=== PATIENT | female | born 1980 | race Hispanic/Latino ===

== ENCOUNTER 2017-06-10 15:30 | Outpatient (CLI) | payer BC ==
--- NOTE | 2017-06-10 18:32 | ULT ---
ULTRASOUND OB COMPLETE: History: Size and dates. Comparison: None available for this . Technique: Real-time grayscale and color evaluation of the gravid uterus with a transabdominal approa ch. FINDINGS: The cervix is closed and measures approximately 7 cm. Placenta is anterior and fundal. Single viable intrauterine measuring on ultrasound 20 weeks 0 days. Estimated date of marco mary is 18. Estimated weight is 13 ounces. BPH 19 weeks 6 days 4.95 cm HC 19 weeks 5 days 17.14 cm AC 20 weeks 6 days 15.70 cm FL 20 weeks 4 days 3.36 cm LFD 19 weeks 0 days 6.05 cm The visualized spine, bladder, kidneys, diaphragm, and cord insertion are all normal. The remainder o f the anatomy is not well seen on this examination. The heart rate is documented at 162 beats/minute. IMPRESSION: Single viable intrauterine with average ultrasound age of 20 weeks 0 days. Estimated date o f delivery is 18. Estimated weight is 13 ounces. POS: [facility]
== END 2017-06-10 15:31 | disposition home or self-care (01) ==
LOC: ULT 15:30
PROVIDERS: ATTEND Family Medicine
DX: Z34.92 Encounter for supervision of normal pregnancy, unspecified, second trimester (principal); Z3A.20 20 weeks gestation of pregnancy
CPT/HCPCS: 76805

== ENCOUNTER 2017-10-25 05:10 | Inpatient (IN) | payer BC ==
[2017-10-25 05:55] VITALS: BMI 56.3
[2017-10-25] MEDS ORDERED: CEFAZOLIN/Water 2 GM/20 ML SYRINGE SLOW IVP SCH (06:01)
[2017-10-25] MEDS ORDERED: Ondansetron HCl/PF 4 MG/2 ML Vial IVP PRN ×5 (06:01→10:56)
[2017-10-25] MEDS ORDERED: Lactated Ringer's 1,000 ML IV SCH (06:01)
[2017-10-25] MEDS ORDERED: Bicitra 30 ML UDCUP PO SCH (06:01)
[2017-10-25] MEDS ORDERED: Promethazine HCl 25 MG/ML VIAL IM PRN ×2 (06:01→08:01)
[2017-10-25 06:54] LABS: Hemoglobin 12.9 g/dL (12.0-16.0); Mean Corpuscular HGB CONC 33.8 g/dL (32.0-36.0); Mean Corpuscular Hemoglobin 28.8 pg (27.0-31.0); Mean Corpuscular Volume 85.2 fl (81.0-99.0); Mean Platelet Volume 10.9 fL (7.4-10.4); Platelet Count 180 thou/uL (130-400); RBC Distribution Width 12.7 % (11.5-14.5); Red Blood Cell (RBC) Count 4.49 mill/uL (4.20-5.40); White Blood Cell (WBC) Count 8.7 thou/uL (4.8-10.8)
[2017-10-25] MEDS ORDERED: Bupivacaine 0.75% W/DEXTROSE 8.25% 2 ML AMP ONE (07:20)
[2017-10-25] MEDS ORDERED: Morphine PF 1 MG/ML SYR ONE (07:20)
[2017-10-25] MEDS ORDERED: Oxytocin 10 UNITS/ML VIAL ONE (07:20)
[2017-10-25] MEDS ORDERED: Lidocaine 1% (PF) 30 ML VIAL ONE (07:21)
[2017-10-25 07:38] LABS: Syphilis Antibody Nonreactive (Nonreactive); Syphilis Antibody Index 0.03 S/CO (<1.00 Non-Reactive)
[2017-10-25 07:53] LABS: HBSAg Index 0.19 S/CO (0-0.99); Hep B Surf Ag Non-Reactive S/CO (NonReactive)
[2017-10-25] MEDS ORDERED: Promethazine HCl 25 MG SUPP PR PRN (08:01)
[2017-10-25] MEDS ORDERED: Eucerin (Mineral Oil/Petrolatum,White) 30 gm Jar TOP PRN (08:01)
[2017-10-25] MEDS ORDERED: Naloxone HCl 0.4 mg/ml Vial IV PRN (08:01)
[2017-10-25] MEDS ORDERED: Meperidine HCl/PF 25 MG/ML VIAL SLOW IVP PRN ×2 (08:01)
[2017-10-25] MEDS ORDERED: Naloxone HCl 0.4 mg/ml Vial IVP PRN ×4 (08:01→19:22)
[2017-10-25] MEDS ORDERED: diphenhydrAMINE 50 MG/ML VIAL IVP PRN (08:01)
[2017-10-25] MEDS ORDERED: HYDROmorphone 2 MG/ML VIAL SLOW IVP PRN ×2 (08:01)
[2017-10-25] MEDS ORDERED: Fentanyl 100 MCG/2 ML VIAL ONE ×2 (08:12→08:17)
[2017-10-25] MEDS ORDERED: PHENYLEPHRINE-NS 100 MCG/ML 10 ML SYRINGE ONE ×2 (08:12→16:14)
[2017-10-25] MEDS ORDERED: Ketorolac Tromethamine 30 MG/ML VIAL IVP SCH ×2 (08:15)
[2017-10-25] MEDS ORDERED: Communication Order-Pharmacy FS SCH (08:15)
--- NOTE | 2017-10-25 08:56 | OP ---
DATE OF PROCEDURE: 10/25/2017 PREOPERATIVE DIAGNOSES: Term intrauterine with previous section x2 and family his tory of breast cancer. POSTOPERATIVE DIAGNOSES: Term intrauterine with previous section x2 and family hi story of breast cancer, status post delivery. PROCEDURE: Repeat low transverse section and a risk reducing salpingectomy carried out By Ritesh [email or web address]. SURGEON: Jessica Schaefer M.D. RELAY ENGINEER: Dr. Waller. ANESTHESIA: Spinal anesthetic. COMPLICATIONS: None. PROCEDURE IN DETAIL: After adequate spinal anesthetic, the patient was placed in supine position. A wedge was placed under her right flank. A Brennan catheter was inserted. The abdomen was prepped and draped in the usual sterile technique. A Pfannenstiel incision was made through the old incision. Subcutaneous tissue opened with sharp dissection. Fascia opened with sharp dissection and peritoneum opened with sharp and blunt dissection. It was noted that the abdomen was filled with gravid uterus , a large Augusto O retractor was placed and a low transverse incision was made on the uterus. Membra odalis were ruptured. Clear fluid was encountered and a viable male was delivered in vertex pres entation with vacuum assist without difficulty. Infant breathed and cried spontaneously after approx imately 30 seconds. The cord was then clamped and cut and infant was handed to care of the Neonatolo gy team. Cord blood was obtained and the placenta was delivered manually, appeared intact. A wet la p was used to wipe and clean the uterus and a ring forceps was used to dilate the cervix. The hyster otomy edges were grasped with ring forceps and the hysterotomy was then closed in continuous fashion using 0 Monocryl. Hemostasis was adequate. Please see separate note for procedure of risk reducing bilateral salpingectomy carried out with Sridhar. Hysterotomy incision was again examined. There was no further bleeding. The peritoneum was then closed in continuous fashion using 0 chromic and the f ascia was then closed using 0 Vicryl. Sponge and instrument counts were correct. Subcutaneous tissu e was irrigated. Two small bleeders were cauterized and the subcutaneous tissue was then closed in c ontinuous fashion using 2-0 plain. The skin was then closed using vince. The patient tolerated th e procedure well and did go to the recovery room in good condition. Noted the baby is a viable male infant, weight 9 pounds and 3 ounces, Apgars 8 at 1 minute, 9 at 5 minutes and level 1 nursery and th e patient to go to recovery room. ESTIMATED BLOOD LOSS: 600 mL.
[2017-10-25] MEDS ORDERED: Ketorolac Tromethamine 30 MG/ML VIAL ONE (09:04)
[2017-10-25] MEDS ORDERED: LR / Pitocin 40 units/1000 ml 1,000 ML ONE (09:15)
[2017-10-25] MEDS: Ketorolac Tromethamine 30 MG/ML VIAL IVP PRN ×3 (09:15→23:12)
[2017-10-25] MEDS ORDERED: Meperidine HCl/PF 25 MG/ML VIAL ONE (09:48)
[2017-10-25] MEDS ORDERED: Bisacodyl 10 MG SUPP PR PRN (10:56)
[2017-10-25] MEDS ORDERED: Prenatal Vitamin 1 TAB PO SCH ×2 (10:56→11:15)
[2017-10-25] MEDS ORDERED: Docusate Calcium (SURFAK) 240 MG CAP PO SCH ×4 (10:56→11:15)
[2017-10-25] MEDS ORDERED: Acetaminophen/Codeine 30-300mg Tablet PO PRN (10:56)
[2017-10-25] MEDS ORDERED: Lanolin Ointment 7 GM TUBE TOP PRN (10:56)
[2017-10-25] MEDS ORDERED: Ibuprofen 800 MG TAB PO SCH (14:00)
[2017-10-25] MEDS: Lactated Ringer's 1,000 ML IV SCH (19:55)
[2017-10-25] MEDS: Docusate Calcium (SURFAK) 240 MG CAP PO SCH ×2 (21:43)
[2017-10-26] MEDS: Simethicone Chewable 80 MG TAB PO PRN ×3 (04:43→20:30)
[2017-10-26] MEDS: HYDROcodone/Acetaminophen 5/325 mg Tablet PO PRN ×3 (04:43→14:50)
[2017-10-26] MEDS: Lactated Ringer's 1,000 ML IV SCH ×2 (05:47→09:50)
[2017-10-26] MEDS: Ibuprofen 800 MG TAB PO SCH ×3 (06:06→21:18)
[2017-10-26 07:04] LABS: Hemoglobin 11.9 g/dL (12.0-16.0); Mean Corpuscular HGB CONC 35.1 g/dL (32.0-36.0); Mean Corpuscular Hemoglobin 30.8 pg (27.0-31.0); Mean Corpuscular Volume 87.8 fl (81.0-99.0); Mean Platelet Volume 11.3 fL (7.4-10.4); Platelet Count 172 thou/uL (130-400); RBC Distribution Width 12.7 % (11.5-14.5); Red Blood Cell (RBC) Count 3.87 mill/uL (4.20-5.40)
[2017-10-26] MEDS: Docusate Calcium (SURFAK) 240 MG CAP PO SCH ×4 (08:16→21:18)
[2017-10-26] MEDS: Prenatal Vitamin 1 TAB PO SCH (08:16)
[2017-10-26] MEDS: Acetaminophen 325 MG TAB PO PRN (20:30)
[2017-10-27] MEDS: Acetaminophen 325 MG TAB PO PRN ×2 (00:24→10:21)
[2017-10-27] MEDS: Lactated Ringer's 1,000 ML IV SCH ×4 (01:07→23:13)
[2017-10-27] MEDS: Ibuprofen 800 MG TAB PO SCH ×3 (05:51→20:50)
[2017-10-27] MEDS: Prenatal Vitamin 1 TAB PO SCH (10:20)
[2017-10-27] MEDS: Docusate Calcium (SURFAK) 240 MG CAP PO SCH ×4 (10:21→20:50)
[2017-10-27] MEDS: HYDROcodone/Acetaminophen 5/325 mg Tablet PO PRN ×2 (15:18→23:49)
[2017-10-28] MEDS: Ibuprofen 800 MG TAB PO SCH (05:16)
[2017-10-28 07:51] VITALS: BP 111/67; TEMP 98
[2017-10-28] MEDS: Lactated Ringer's 1,000 ML IV SCH (09:42)
[2017-10-28] MEDS: Prenatal Vitamin 1 TAB PO SCH (09:44)
[2017-10-28] MEDS: Docusate Calcium (SURFAK) 240 MG CAP PO SCH ×2 (09:45)
[2017-10-28] MEDS: Acetaminophen 325 MG TAB PO PRN (09:47)
== END 2017-10-28 11:48 | disposition home or self-care (01) | DRG 765 ==
LOC: L&D 05:10 → 3SW 10:35
PROVIDERS: ADMIT Family Medicine; ATTEND Family Medicine
PROC: 10D00Z1 Extraction of Products of Conception, Low, Open Approach (ICD-10-PCS; principal; 2017-10-25)
PROC: 0UT70ZZ Resection of Bilateral Fallopian Tubes, Open Approach (ICD-10-PCS; 2017-10-25)
DX: O34.211 Maternal care for low transverse scar from previous cesarean delivery (principal); Z68.43 Body mass index [BMI] 50.0-59.9, adult; Z3A.39 39 weeks gestation of pregnancy; Z37.0 Single live birth; O99.214 Obesity complicating childbirth; Z40.02 Encounter for prophylactic removal of ovary(s); Z80.3 Family history of malignant neoplasm of breast; O75.89 Other specified complications of labor and delivery
CPT/HCPCS: 36415; 51702; 85027; 86780; 86850; 86900; 86901; 87340; 88302; A4216; J1885; J2001; J2175; J2274; J2405; J2590; J3010; J3490

== ENCOUNTER 2019-01-02 23:49 | Emergency (ER) | payer BC ==
[2019-01-03] MEDS ORDERED: HYDROcodone/Acetaminophen 7.5/325 mg Tablet ONE (00:06)
== END 2019-01-03 00:18 | disposition home or self-care (01) ==
LOC: SCSER 23:49
DX: S86.911A Strain of unspecified muscle(s) and tendon(s) at lower leg level, right leg, initial encounter (principal); E78.5 Hyperlipidemia, unspecified; F41.9 Anxiety disorder, unspecified; F32.9 Major depressive disorder, single episode, unspecified; W17.89XA Other fall from one level to another, initial encounter; Z79.899 Other long term (current) drug therapy
CPT/HCPCS: 99283

== ENCOUNTER 2019-09-18 12:49 | Outpatient (CLI) | payer BC ==
--- NOTE | 2019-09-18 14:25 | ULT ---
US Pelvic Transvag W Doppler History: Menorrhagia with irregular cycles Comparison: OB ultrasound May 2017 Findings: Real-time grayscale, color, and spectral analysis of the pelvis was performed transabdomina l and transvaginal approach. Uterus is normal. Images thickness is 8 mm, normal. No myometrial mass. Right ovary is not visualized. The left ovary measures 1.6 x 2.5 x 1.8 cm with adequate vascular flow . No significant free fluid in the pelvis. Impression: Normal pelvic exam aside from nonvisualization right ovary.
== END 2019-09-18 12:50 | disposition home or self-care (01) ==
LOC: BICULT 12:49
PROVIDERS: ATTEND Family Medicine
DX: N92.0 Excessive and frequent menstruation with regular cycle (principal)
CPT/HCPCS: 76856

== ENCOUNTER 2019-11-28 20:38 | Emergency (ER) | payer BC ==
--- NOTE | 2019-11-28 21:28 | RAD ---
Exam:Right ankle 3 views HISTORY: Fall. Pain. COMPARISON: None FINDINGS: Soft tissue swelling. Mildly displaced distal fibular fracture. Possible posterior malleolu s fracture. IMPRESSION: Distal fibula and posterior malleolus fracture. Associated soft tissue swelling.
--- NOTE | 2019-11-28 21:28 | RAD ---
Exam:3 views right foot HISTORY: Trauma. Fall. Pain. COMPARISON: None FINDINGS: Lisfranc alignment is maintained. Joint spaces are preserved. No evidence of fracture with regards to the right foot. There is a distal fibular fracture. IMPRESSION: 1. No evidence of a foot fracture. There is a distal fibular fracture. Refer to separate ankle radiog raph report
[2019-11-28] MEDS ORDERED: Ketorolac Tromethamine 30 MG/ML VIAL ONE (21:31)
[2019-11-29] MEDS ORDERED: HYDROcodone/Acetaminophen 5/325 mg Tablet ONE (00:28)
== END 2019-11-29 00:30 | disposition home or self-care (01) ==
LOC: ERS 20:38
DX: S82.831A Other fracture of upper and lower end of right fibula, initial encounter for closed fracture (principal); E78.5 Hyperlipidemia, unspecified; E78.00 Pure hypercholesterolemia, unspecified; F41.9 Anxiety disorder, unspecified; F32.9 Major depressive disorder, single episode, unspecified; Z79.899 Other long term (current) drug therapy; X50.1XXA Overexertion from prolonged static or awkward postures, initial encounter
CPT/HCPCS: 29515; 96372; J1885